=== PATIENT | male | born 1960 | race Caucasian/White ===

== ENCOUNTER 2024-09-26 11:53 | Emergency (ER) | payer OTHER, SELFPAY ==
[2024-09-26 12:02] VITALS: BP 175/96
--- NOTE | 2024-09-26 12:39 | ED.SKININJ ---
HPI-Injury
General
Chief Complaint: Eye Problems
Source: patient
Exam Limitations: none
Time Seen by Provider: 09/26/24 12:10
Nursing documentation reviewed up to this point in time: agreed with
History of Present Illness-Injury
Initial Injury comments:
64-year-old male with history of HTN, HLD, IDDM was working under his car yesterday and has had foreign body sensation and irritation in the left eye since. He denies pain in the eyeball. He denies change in vision.
Past History
Past History
ED Past Medical History: HTN, NIDDM, Psychiatric (Alcohol abuse) and Other (Pancreatitis)
ED Past Surgical History: None
Social History
Alcohol: Chronic alcoholic
Personal:
Living: alone
Employment: Employed
Review of Systems
Review of Systems
Allergies reviewed?: Yes
All Other Systems: ROS reviewed and negative except as documented in HPI and ROS
EENT: Reports other (Irritation left eye, foreign body left eye)
Skin Exam
Foreign Body
lower left eyelid over tear duct:
Foreign body is: superficial
Foreign body can be visualized?: Yes
Phy Exam
Physical Exam
Physical Exam:
GENERAL: No acute distress. A&Ox3.
CONSTITUTIONAL: Afebrile.
EYES: clear, conjunctivae normal, tiny black speck noted at 8:00 over the iris. Visual acuity noted. Also has a black speck embedded in the tear duct of left eye.
ENMT: moist mucus membranes
RESPIRATORY: Regular respirations, nonlabored, lungs clear.
CARDIOVASCULAR: Regular rate and rhythm, no murmurs, no rubs.
MUSCULOSKELETAL: Moves with ease. Well perfused.
SKIN: Warm, dry, pink
PSYCH: Normal mood and affect. Well kept, interactive and appropriate
NEUROLOGIC: Awake, alert and oriented. No focal neurological deficits
Eye Exam
Eye Exam: PERRL, EOMI, cornea clear (with tiny black speck at 8 o'clock), conjunctiva normal, visual acuity normal and other (tiny black speck embedded in left tear duct. Small sty midway lower inner eyelid)
Course
Orders/Labs/Results
Orders:
Orders
09/26/24 12:14
Visual Acuity- Treatment ONCE
09/26/24 12:16
Tetracaine HCl [Tetracaine 0.5% Ophthalmic Solution] 2 drop .ROUTE .STK-MED ONE
09/26/24 13:07
Gentamicin [Genoptic 0.3% Eye Drops] See Dose Instructions OPHTH NOW STA
Vital Signs
Initial and Last Documented VS:
Initial Vital Signs
Temp Pulse Resp BP Pulse Ox
98.3 F 94 16 175/96 98
09/26/24 12:02 09/26/24 12:02 09/26/24 12:02 09/26/24 12:02 09/26/24 12:02
Last Documented Vital Signs
Temp Pulse Resp BP Pulse Ox
98.3 F 94 16 175/96 98
09/26/24 12:02 09/26/24 12:02 09/26/24 12:02 09/26/24 12:02 09/26/24 12:02
Procedures
Foreign Body Removal-Skin
Wound explored and foreign body removed?: Yes
Foreign body removed using: irrigation (sterile cotton swab used to sweep the tiny black FB out of the tear duct)
Foreign body removed: completely
Eye Procedures
Anesthesia: Alcaine
Conjuctival foreign body removal was superficial- removed by: scraping
Removal of corneal foreign body with: slit lamp and simple removal
Foreign body removal was: complete
After removal was there a corneal abrasion?: corneal abrasion present (Tiny corneal abrasion at 8:00 over the iris.)
MDM/Problems Addressed
Differential Diagnosis Includes:
corneal FB, corneal abrasion, stye
MDM/Problems Addressed:
64-year-old male with history of HTN, HLD, IDDM was working under his car yesterday and has had foreign body sensation and irritation in the left eye since. He denies pain in the eyeball. He denies change in vision.
After removal of FB small cornea abrasion noted.
After FB scraped out of tear duct, small amount STS at site, lower lid everted and there is a small stye mid lower lid also causing irritation.
Pt referred to ophthalmology if not much better in 3-4 days.
Antibiotic eye drops given
*Critical Care Note
Total Time (30-74mins, 75-104mins- exclusive of procedures): Not Applicable
ED Attending Note
-
Portions of this chart may have been created with voice recognition software.� Occasional wrong word or��sound alike� substitutions may have occurred due to the inherent limitations of voice recognition software.
Discharge Plan
Departure
Patient Disposition: Home (Routine Discharge)
Date of Disposition: 09/26/24
Time of Disposition: 13:10
Patient with high blood pressure during this ER visit?: Yes
Condition: Good
Discharge Problem:
Foreign body of eyelid, left, Foreign body of left cornea, Hordeolum of lower eyelid
Instructions: Stye, Corneal Abrasion (DC), How to Use Eye Drops
Prescriptions:
No Action
No Meds [No Current Medications]
0
dicyclomine 20 MG tablet
20 mg PO QIDPRN PRN (Reason: pain, spasm) Qty: 15 0RF
Referrals:
Ildefonso Winter DO [Family Provider] -
Kera Moraes MD [Active] - As needed
Activity Restrictions/Additional Instructions:
As we discussed, you have a couple things going on...
Sty in the lower lid
Removal of tiny black foreign body that was embedded in the lower lid by or in the tear duct
Tiny speck removed from the eyeball, flicked out with a needle leaving a small abrasion
You will have irritation in the eye for the next few days.
use the Gentamycin eye drops as follows: 1-2 drops in left eye 4 times a day for the next 5 days
See the eye doctor if your eye is not A LOT better in 3-4 days.
See her immediately for eye pain, loss of vision or feeling worse in any way.
Interventions
Interventions:
*Risk Screen - Suicide Last Done: 09/26/24 12:02
*General Assessment Last Done: 09/26/24 12:33
*Neglect/Abuse Screening Last Done: 09/26/24 12:02
*ED COVID-19 Vaccine History Last Done: 09/26/24 12:33
*Nursing Disposition Last Done: 09/26/24 13:13
Discharge Date and Time
Discharge Date/Time: 09/26/24 13:36
Print Language: GEORGIAN
[2024-09-26] MEDS: GENOPTIC 0.3% EYE DROPS 2 DROP OPHTH (13:12)
== END 2024-09-26 13:36 | disposition home or self-care (01) ==
LOC: EMR 11:53
PROVIDERS: EMERGENCY PHYSICIAN Emergency Medicine; FAMILY PHYSICIAN Internal Medicine
DX: T15.02XA Foreign body in cornea, left eye, initial encounter (principal); S00.252A Superficial foreign body of left eyelid and periocular area, initial encounter; W44.9XXA Unspecified foreign body entering into or through a natural orifice, initial encounter; H00.015 Hordeolum externum left lower eyelid; I10 Essential (primary) hypertension; E78.5 Hyperlipidemia, unspecified; E11.9 Type 2 diabetes mellitus without complications; Z79.4 Long term (current) use of insulin
CPT/HCPCS: 65222; 99283

== ENCOUNTER 2024-10-14 07:13 | Emergency (ER) | payer OTHER, SELFPAY ==
[2024-10-14 07:16] VITALS: BP 179/99
--- NOTE | 2024-10-14 07:40 | ED.GENMED ---
History of Present Illness
General
Chief Complaint: Eye Problems
Time Seen by Provider: 10/14/24 07:20
History of Present Illness
History of Present Illness:
64-year-old male with history of high blood pressure and diabetes presenting to the emergency department with left eye irritation. He feels like something is in his eye. He has been rubbing his eye. He noticed the symptoms prior to arrival.
Denies any known foreign body to the eye. Denies any significant pain or changes in vision. Denies fever. Denies additional acute medical complaints
Past History
Past History
ED Past Medical History: HTN, NIDDM, Psychiatric (Alcohol abuse) and Other (Pancreatitis)
ED Past Surgical History: None
Social History
Alcohol: Chronic alcoholic
Personal:
Living: alone
Employment: Employed
Phy Exam
Physical Exam
Physical Exam:
General: Well-appearing, no clinical signs of dehydration, nontoxic and in no acute distress
HEENT: protecting airway, extraocular muscles intact, pupils equal and reactive. No swelling to the orbit. Irritation to the sclera
Neck: appears supple
CV: Normal heart rate
Resp: No accessory muscle use, no increased work of breathing
Abd: No distention
Extremities: No deformities, no swelling
Neuro: alert, no focal neurologic deficit
: deferred
Rectal: deferred
Psych: Normal affect
Skin: Intact
Course
Orders/Labs/Results
Orders:
Orders
10/14/24 07:35
Erythromycin (Ilotycin) [Erythromycin 0.5% Ophthalmic Ointment] See Dose Instructions OPHTH NOW STA
Vital Signs
Initial and Last Documented VS:
Initial Vital Signs
Temp Pulse Resp BP Pulse Ox
97.8 F 100 18 179/99 99
10/14/24 07:16 10/14/24 07:16 10/14/24 07:16 10/14/24 07:16 10/14/24 07:16
Last Documented Vital Signs
Temp Pulse Resp BP Pulse Ox
97.8 F 100 18 179/99 99
10/14/24 07:16 10/14/24 07:16 10/14/24 07:16 10/14/24 07:16 10/14/24 07:16
MDM/Problems Addressed
MDM/Problems Addressed:
64-year-old male presenting for left eye irritation. Vital signs on arrival significant for high blood pressure.
On exam patient is resting comfortably, no acute distress or discomfort. Reassuring external examination to the eye. No swelling to the orbit. No indication of orbital cellulitis. Fluorescein staining completed, does show a small corneal
abrasion at the 5 o'clock position. No sign of corneal ulcer. No foreign body seen. At this time feel stable for discharge. Will start patient on erythromycin ointment. Otherwise feel stable for discharge. Advised outpatient ophthalmology
follow-up
*Critical Care Note
Total Time (30-74mins, 75-104mins- exclusive of procedures): Not Applicable
ED Attending Note
-
Portions of this chart may have been created with voice recognition software.� Occasional wrong word or��sound alike� substitutions may have occurred due to the inherent limitations of voice recognition software.
Discharge Plan
Departure
Patient Disposition: Home (Routine Discharge)
Date of Disposition: 10/14/24
Time of Disposition: 07:44
Patient with high blood pressure during this ER visit?: Yes
Condition: Good
Discharge Problem:
Corneal abrasion, left
Instructions: Corneal Abrasion (DC), BLOOD PRESSURE
Prescriptions:
No Action
No Meds [No Current Medications]
0
dicyclomine 20 MG tablet
20 mg PO QIDPRN PRN (Reason: pain, spasm) Qty: 15 0RF
Referrals:
Jordan Collins MD [Active, Ophthalmology]
Activity Restrictions/Additional Instructions:
You were seen in the emergency department for eye irritation
You were found to have a corneal abrasion, which is a scratch on your cornea. You were started on an antibiotic ointment. Please take 4 times a day for the next 5 days and follow-up with the eye doctor.
Please follow-up closely with your primary care physician.
Return to the emergency department for any worsening of your symptoms including increased swelling to the eye region or any changes in your vision, or any development of chest pain, difficulty breathing, abdominal pain with persistent vomiting and
inability to tolerate food or liquid by mouth (concern for dehydration), weakness, headache or confusion, fever greater than 100.4, or any additional symptoms that are concerning to you.
Thank you for choosing [facility].
Interventions
Interventions:
*Risk Screen - Suicide Last Done: 10/14/24 07:16
*General Assessment Last Done: 10/14/24 07:16
*Neglect/Abuse Screening Last Done: 10/14/24 07:16
Discharge Date and Time
Print Language: CENTRAL AFRICAN
[2024-10-14] MEDS: ERYTHROMYCIN 0.5% OPHTHALMIC OINTMENT 1 APPLIC OPHTH (07:53)
--- NOTE | 2024-10-14 08:09 | EDRN ---
Reviewed discharge instructions with patient. Verbalized understanding. Ambulated with steady gait to the lobby.
[2024-10-14 08:10] VITALS: BP 176/95
== END 2024-10-14 08:00 | disposition home or self-care (01) ==
LOC: EMR 07:13
PROVIDERS: EMERGENCY PHYSICIAN Student in an Organized Health Care Education/Training Program; FAMILY PHYSICIAN Internal Medicine
DX: S05.02XA Injury of conjunctiva and corneal abrasion without foreign body, left eye, initial encounter (principal); X58.XXXA Exposure to other specified factors, initial encounter; E11.9 Type 2 diabetes mellitus without complications; I10 Essential (primary) hypertension
CPT/HCPCS: 99283